=== PATIENT | female | born 1965 | race Caucasian/White ===

== ENCOUNTER → 2017-12-11 | Outpatient (CLI) | payer BC ==
[2017-12-11 12:12] LABS: ALT 43 U/L (9-52); AST 31 U/L (14-36); Albumin 4.1 g/dL (3.5-5.0); Alkaline Phosphatase 109 U/L (38-126); Anion Gap 11 mmol/L; Blood Urea Nitrogen 13 mg/dL (7-17); Calcium 9.6 mg/dL (8.4-10.2); Carbon Dioxide 29 mmol/L (22-30); Chloride 99 mmol/L (98-107); Glucose 147 mg/dL (74-99); Potassium 4.8 mmol/L (3.5-5.1); Sodium 139 mmol/L (137-145); Total Bilirubin 0.5 mg/dL (0.2-1.3); Total Protein 6.8 g/dL (6.3-8.2)
== END | disposition home or self-care (01) ==
LOC: LABWHC1 11:18
PROVIDERS: ATTEND Internal Medicine Endocrinology, Diabetes & Metabolism
DX: E10.65 Type 1 diabetes mellitus with hyperglycemia (principal)
CPT/HCPCS: 36415; 80053; 82043; 82570; 84443

== ENCOUNTER 2024-01-02 21:12 | Emergency (ER) | payer BC ==
[2024-01-02 21:35] VITALS: BP 143/71; PULSE 68; RESP 20; TEMP 98.2
--- NOTE | 2024-01-02 22:36 | ED ---
Lower Extremity Injury HPI - General Chief Complaint: Extremity Injury, Lower Stated Complaint: hip pain Time Seen by Provider: 01/02/24 22:19 Source: patient Mode of arrival: ambulatory Limitations: no limitations - History of Present Illness Initial Comments: 58-year-old female presenting with chief complaint of left hip pain. Patient had a fall 2 months ago and since then has had pain as well as difficulty ambulating. She has had significant help from her with getting around. States that immediately following the fall she had an x-ray at the chiropractor which showed no fracture. She had an x-ray at [facility] ordered by her PCP, she was called by her PCP and informed she had a fractured hip and was instructed to come to the ER. Her pain at rest is minimal. - Related Data Allergies Allergy/AdvReac Type Severity Reaction Status Date / Time No Known Allergies Allergy Verified 01/02/24 21:18 Review of Systems ROS Statement: Those systems with pertinent positive or pertinent negative responses have been documented in the HPI. ROS Other: All systems not noted in ROS Statement are negative. Past Medical History Past Medical History: Diabetes Mellitus Additional Past Medical History / Comment(s): MS, [place] History of Any Multi-Drug Resistant Organisms: None Reported Past Surgical History: No Surgical Hx Reported Past Psychological History: No Psychological Hx Reported Smoking Status: Former smoker Past Alcohol Use History: None Reported Past Drug Use History: None Reported General Exam Limitations: no limitations General appearance: alert, in no apparent distress Head exam: Present: atraumatic, normocephalic Eye exam: Present: normal appearance, EOMI Neck exam: Present: normal inspection. Absent: meningismus Respiratory exam: Absent: respiratory distress Cardiovascular Exam: Present: regular rate Neurological exam: Present: alert, oriented X3 Psychiatric exam: Present: normal affect, normal mood Skin exam: Present: normal color Course Vital Signs 01/02/24 21:14 Temperature 98.2 F Pulse Rate 68 Respiratory 20 Rate Blood Pressure 143/71 O2 Sat by Pulse 99 Oximetry Medical Decision Making - Medical Decision Making Was pt. sent in by a medical professional or institution (, PA, BAGGING MACHINE OPERATOR, urgent care, hospital, or usp...) When possible be specific @ -No Did you speak to anyone other than the patient for history (EMS, parent, family, police, friend...)? What history was obtained from this source @ -No Did you review nursing and triage notes (agree or disagree)? Why? @ -I reviewed and agree with nursing and triage notes Were old charts reviewed (outside hosp., previous admission, EMS record, old EKG, old radiological studies, urgent care reports/EKG's, usp records)? Report findings @ -No old charts were reviewed Differential Diagnosis (chest pain, altered mental status, abdominal pain women, abdominal pain men, vaginal bleeding, weakness, fever, dyspnea, syncope, headache, dizziness, GI bleed, back pain, seizure, CVA, palpatations, mental hea lth, musculoskeletal)? @ -Differential Musculoskeletal Muscular strain, contusion, ligament sprain, fracture, arthritis, septic arthritis, bursitis, cellulitis, muscle spasm, nerve compression, DVT, arterial occlusion, herpes zoster, electrolyte abnormality, tumor.... This is not meant to be in all inclusive list EKG interpreted by me (3pts min.). @ -As above X-rays interpreted by me (1pt min.). @ -Hip and pelvis x-ray shows nondisplaced fracture of the left subcapital femoral neck. Orthopedic surgical evaluation recommended. Chest x-ray shows no consolidation. CT interpreted by me (1pt min.). @ -None done U/S interpreted by me (1pt. min.). @ -None done What testing was considered but not performed or refused? (CT, X-rays, U/S, labs)? Why? @ -None What meds were considered but not given or refused? Why? @ -I offered pain meds on multiple occasions, declined Did you discuss the management of the patient with other professionals (professionals i.e. , PA, BAGGING MACHINE OPERATOR, lab, RT, psych nurse, director social welfare, veterinary bacteriologist, teacher, boat officer, case mgr)? Give summary @ -I spoke with [facility]. I initially spoke with him informing him of the injury. He needed to review the x-rays and call back with a decision. He did call back and advised admission, however the patient had already left AGAINST MEDICAL ADVICE by that time Was smoking cessation discussed for >3mins.? @ -No Was critical care preformed (if so, how long)? @ -No Were there social determinants of health that impacted care today? How? (Homelessness, low income, unemployed, alcoholism, drug addiction, transportation, low edu. Level, literacy, decrease access to med. care, nursing home, rehab)? @ -No Was there de-escalation of care discussed even if they declined (Discuss DNR or withdrawal of care, Hospice)? DNR status @ -No What co-morbidities impacted this encounter? (DM, HTN, Smoking, COPD, CAD, Cancer, CVA, ARF, Chemo, Hep., AIDS, mental health diagnosis, sleep apnea, morbid obesity)? @ -None Was patient admitted / discharged? Hospital course, mention meds given and route, prescriptions, significant lab abnormalities, going to OR and other pertinent info. @ -58-year-old female present with chief complaint of left-sided hip pain. Patient had a fall 2 months ago. She has had continuous left-sided hip pain since then. She had an x-ray at [facility] today, her PCP called her and told her that she had a hip fracture. X-ray was obtained here. Patient declined pain medication. The patient and her were upset by the wait for the radiologist report. X-ray did confirm nondisplaced fracture of the left subcapital femoral neck. Orthopedics was paged. In that time the patient and her decided to leave AGAINST MEDICAL ADVICE. I explained to them that they should wait for the recommendations by orthopedics. They refused and signed out AGAINST MEDICAL ADVICE. She is of sound mind and able to make her own decisions. Orthopedics did call back advising admission, however the patient had already left AGAINST MEDICAL ADVICE by that time. I discussed this case with my attending Dr. Unger Undiagnosed new problem with uncertain prognosis? @ -No Drug Therapy requiring intensive monitoring for toxicity (Heparin, Nitro, Insulin, Cardizem)? @ -No Were any procedures done? @ -No Diagnosis/symptom? @ -Hip fracture Acute, or Chronic, or Acute on Chronic? @ -Acute Uncomplicated (without systemic symptoms) or Complicated (systemic symptoms)? @ -Complicated Side effects of treatment? @ -No Exacerbation, Progression, or Severe Exacerbation? @ -No Poses a threat to life or bodily function? How? (Chest pain, [place], [place], pneumonia, PE, COPD, DKA, ARF, appy, cholecystitis, CVA, Diverticulitis, Homicidal, Suicidal, threat to staff... and all critical care pts) @ -Threat next to the patient's future mobility, the patient signed out AGAINST MEDICAL ADVICE Disposition Clinical Impression: Hip fracture Disposition: LEFT AGAINST MEDICAL ADVICE Condition: Stable Referrals: Aneudy Rodriguez MD [Primary Care Provider] - 1-2 days Time of Disposition: 00:32
--- NOTE | 2024-01-02 23:53 | XR ---
EXAM: XR Chest, 2 Views CLINICAL HISTORY: ITS.REASON XR Reason: PREOP TECHNIQUE: Frontal and lateral views of the chest. COMPARISON: No relevant prior studies available. FINDINGS: Lungs: Unremarkable. No consolidation. Pleural space: Unremarkable. No pneumothorax. Heart: Unremarkable. No cardiomegaly. Mediastinum: Unremarkable. Normal mediastinal contour. Bones/joints: Unremarkable. No acute fracture. IMPRESSION: No consolidation.
--- NOTE | 2024-01-03 00:03 | XR ---
EXAM: XR Pelvis, 1 or 2 Views CLINICAL HISTORY: ITS.REASON XR Reason: fall TECHNIQUE: Frontal view of the pelvis. COMPARISON: No relevant prior studies available. FINDINGS: Bones/joints: Nondisplaced fracture of the LEFT subcapital femoral neck. Orthopedic surgical evaluation recommended. Osseous demineralization. No dislocation. Soft tissues: Unremarkable. IMPRESSION: Nondisplaced fracture of the LEFT subcapital femoral neck. Orthopedic surgical evaluation recommended.
== END 2024-01-03 00:37 | disposition left against medical advice (07) ==
LOC: EC 21:12
DX: S72.002A Fracture of unspecified part of neck of left femur, initial encounter for closed fracture (principal); Z87.891 Personal history of nicotine dependence; W18.30XA Fall on same level, unspecified, initial encounter
CPT/HCPCS: 71046; 73502; 99283